=== PATIENT | male | born 1990 | race Caucasian/White ===

== ENCOUNTER 2020-01-08 06:20 | Emergency (ER) | payer MEDICAID ==
[~2020-01-08] VITALS: Ht 185.4 cm; Wt 90.7 kg
[2020-01-08 06:29] VITALS: BP 122/70
--- NOTE | 2020-01-08 06:34 | NUR ---
PT WOUND ON HEAD IRRIGATED WITH NORMAL SALINE.
--- NOTE | 2020-01-08 06:38 | NUR ---
PT C/O LACERATION ON SCALP. PT BIB [facility]. PT PREBOOK. DENIES N/V/D; SKIN IS PINK/WARM/DRY; AAOX4 WITH EVEN AND STEADY GAIT; LUNGS CLEAR BL; HR EVEN AND REGULAR; PT DENIES ANY FEVER, CP, SOB, OR COUGH AT THIS TIME; PATIENT STATES PAIN OF 0/10 AT THIS TIME; VSS; PATIENT POSITIONED FOR COMFORT; HOB ELEVATED; BEDRAILS UP X2; BED DOWN. ER MD MADE AWARE OF PT STATUS.
--- NOTE | 2020-01-08 06:40 | NUR ---
DR. COX AT BEDSIDE.
--- NOTE | 2020-01-08 06:41 | NUR ---
DR. COX PLACED TRISHA ON LACERATION.
[2020-01-08] MEDS ORDERED: KETOROLAC 60 MG/2 ML VIAL IM ONE (06:45)
--- NOTE | 2020-01-08 06:59 | NUR ---
patient discharged back to [facility] officer Jonathan #[id number] custody. vss. wristband removed.
== END 2020-01-08 07:00 ==
LOC: EDBD 06:20 → MED 06:20
DX: S01.01XA Laceration without foreign body of scalp, initial encounter (principal); Z02.89 Encounter for other administrative examinations; V89.2XXA Person injured in unspecified motor-vehicle accident, traffic, initial encounter; Y93.89 Activity, other specified; Y92.89 Other specified places as the place of occurrence of the external cause; Y99.8 Other external cause status
CPT/HCPCS: 12002; 90471; 90715; 96372; 99284; J1885